=== PATIENT | female | born 1995 | race Caucasian/White ===

== ENCOUNTER 2017-05-04 08:17 | Emergency (ER) | payer BC ==
[2017-05-04] MEDS ORDERED: KETOROLAC 30 MG/ML 1 ML VIAL IVP STA (08:48)
[2017-05-04] MEDS ORDERED: ONDANSETRON 4 MG/2 ML VIAL IVP STA (08:48)
[2017-05-04] MEDS ORDERED: RX INFO: IV CONTRAST WAS GIVEN 1 EACH MISC MISCELLANE PRN (08:48)
[2017-05-04] MEDS ORDERED: SODIUM CHLORIDE 0.9% 1,000 ML IV STA (08:48)
[2017-05-04] MEDS ORDERED: MORPHINE SULFATE 4 MG/ML SYRINGE IVP STA (08:48)
--- NOTE | 2017-05-04 08:52 | ED ---
Abdominal Pain HPI - General Chief Complaint: Abdominal Pain Stated Complaint: Lower back pain Time Seen by Provider: 05/04/17 08:25 Source: patient, RN notes reviewed, old records reviewed Mode of arrival: ambulatory Limitations: no limitations - History of Present Illness Initial Comments: This patient is a 21-year-old female presents emergency Department with a chief complaint of 3 days of lower back pain that is not really transferred to abdomen She reports that it is lower abdominal cramping. She reports she has a history of constipation but has been having normal bowel movements over the past couple of days. Patient reports that she's also didn't diagnose vaguely with PCOS. She states that she is concerned because the pain is now just not just in the back reading towards her abdomen. She reports that she's had normal urination. Denies any fever or chills, nausea or vomiting. - Related Data Home Medications Medication Instructions Recorded Confirmed Clindamycin Topical Soln 1 applic TOPICAL BID 05/04/17 05/04/17 [Cleocin-T Topical Soln] Norethindrone [Daya] 0.35 mg PO DAILY 05/04/17 05/04/17 Previous Rx's Medication Instructions Recorded Ibuprofen [Motrin] 600 mg PO Q8HR PRN #20 tab 05/04/17 Ondansetron [Zofran] 4 mg PO Q8HR PRN #20 tab 05/04/17 traMADol HCl [Ultram] 50 mg PO Q6H PRN #15 tab 05/04/17 Allergies Allergy/AdvReac Type Severity Reaction Status Date / Time No Known Allergies Allergy Verified 05/04/17 08:32 Review of Systems ROS Statement: Those systems with pertinent positive or pertinent negative responses have been documented in the HPI. ROS Other: All systems not noted in ROS Statement are negative. Past Medical History Past Medical History: No Reported History Additional Past Medical History / Comment(s): Hidradenitis suppurativa History of Any Multi-Drug Resistant Organisms: None Reported Past Surgical History: No Surgical Hx Reported Past Psychological History: No Psychological Hx Reported Smoking Status: Never smoker Past Alcohol Use History: None Reported Past Drug Use History: None Reported General Exam - General Exam Comments Initial Comments: This patient is a 21-year-old female. No distress. Limitations: no limitations General appearance: alert, in no apparent distress Head exam: Present: atraumatic, normocephalic, normal inspection Eye exam: Present: normal appearance, PERRL, EOMI. Absent: scleral icterus, conjunctival injection, periorbital swelling ENT exam: Present: normal exam, mucous membranes moist Neck exam: Present: normal inspection. Absent: tenderness, meningismus, lymphadenopathy Respiratory exam: Present: normal lung sounds bilaterally. Absent: respiratory distress, wheezes, rales, rhonchi, stridor Cardiovascular Exam: Present: regular rate, normal rhythm, normal heart sounds. Absent: systolic murmur, diastolic murmur, rubs, gallop, clicks GI/Abdominal exam: Present: soft, tenderness (Bilateral left and right lower quadrant tenderness on exam.), normal bowel sounds. Absent: distended, guarding , rebound, rigid Extremities exam: Present: normal inspection, full ROM, normal capillary refill. Absent: tenderness, pedal edema, joint swelling, calf tenderness Back exam: Present: normal inspection Neurological exam: Present: alert, oriented X3, CN II-XII intact Psychiatric exam: Present: normal affect, normal mood Skin exam: Present: warm, dry, intact, normal color. Absent: rash Course Vital Signs 05/04/17 05/04/17 08:20 11:23 Temperature 98.1 F 97.9 F Pulse Rate 110 H 75 Respiratory 18 16 Rate Blood Pressure 142/80 111/59 O2 Sat by Pulse 99 97 Oximetry Medical Decision Making - Medical Decision Making This patient is a 21-year-old female presents emergency Department with a chief complaint of 3 days of lower back pain that is not really transferred to abdomen yesterday and mainly in LLQ. She reports that it is lower abdominal cramping. Patient lab work was reviewed and normal. Patient continued to state in severe pain, CT abdomen and pelvis completed showing follicular changes in ovary. Discussed with normal labs, left ovarian cyst is cause of patient pain. Discussed appropriate follow up with OB and PCP. Return parameters discussed. - Lab Data Result diagrams: 05/04/17 09:10 05/04/17 09:10 Lab Results 05/04/17 05/04/17 05/04/17 Range/Units 09:10 09:10 09:30 WBC 10.7 H (3.8-10.6) k/uL RBC 4.91 (3.80-5.40) m/uL Hgb 13.9 (11.4-16.0) gm/dL Hct 40.1 (34.0-46.0) % MCV 81.7 (80.0-100.0) fL MCH 28.4 (25.0-35.0) pg MCHC 34.7 (31.0-37.0) g/dL RDW 12.3 (11.5-15.5) % Plt Count 281 (150-450) k/uL Neutrophils % 67 % Lymphocytes % 25 % Monocytes % 5 % Eosinophils % 2 % Basophils % 0 % Neutrophils # 7.1 (1.3-7.7) k/uL Lymphocytes # 2.6 (1.0-4.8) k/uL Monocytes # 0.5 (0-1.0) k/uL Eosinophils # 0.2 (0-0.7) k/uL Basophils # 0.0 (0-0.2) k/uL Sodium 140 (137-145) mmol/L Potassium 3.3 L (3.5-5.1) mmol/L Chloride 97 L (98-107) mmol/L Carbon Dioxide 30 (22-30) mmol/L Anion Gap 13 mmol/L BUN 13 (7-17) mg/dL Creatinine 0.71 (0.52-1.04) mg/dL Est GFR (MDRD) Af Amer >60 (>60 ml/min/1.73 sqM) Est GFR (MDRD) Non-Af >60 (>60 ml/min/1.73 sqM) Glucose 86 (74-99) mg/dL Calcium 9.4 (8.4-10.2) mg/dL Total Bilirubin 0.3 (0.2-1.3) mg/dL AST 27 (14-36) U/L ALT 34 (9-52) U/L Alkaline Phosphatase 134 H (38-126) U/L Total Protein 7.6 (6.3-8.2) g/dL Albumin 4.1 (3.5-5.0) g/dL Amylase 49 (30-110) U/L Lipase 115 (23-300) U/L Urine Color Light Yellow Urine Appearance Clear (Clear) Urine pH 6.0 (5.0-8.0) Ur Specific Edison 1.007 (1.001-1.035) Urine Protein Negative (Negative) Urine Glucose (UA) Negative (Negative) Urine Ketones Negative (Negative) Urine Blood Negative (Negative) Urine Nitrite Negative (Negative) Urine Bilirubin Negative (Negative) Urine Urobilinogen <2.0 (<2.0) mg/dL Ur Leukocyte Esterase Negative (Negative) - Radiology Data Radiology results: report reviewed Hepatomegaly noted, correlate for possible causes including fatty infiltration and hepatitis. Few borderline size mesenteric lymph nodes measuring 7 mm's likely reactive or postinflammatory. Follicular change in the ovaries and 3.1 dominant follicle or functional cyst on the left. KUB shows a couple small air-fluid levels in the left mid abdomen could reflect regional enteritis or ileus. No evidence of small bowel obstruction or free intraperitoneal air. Disposition Clinical Impression: Hepatomegaly, Ovarian cyst Disposition: HOME SELF-CARE Condition: Good Instructions: Ovarian Cyst (ED) Additional Instructions: Patient advised to take the medication as prescribed. Follow-up with primary care provider. Return to the emergency department if any alarming signs or symptoms occur. Prescriptions: Ibuprofen [Motrin] 600 mg PO Q8HR PRN #20 tab PRN Reason: Pain Ondansetron [Zofran] 4 mg PO Q8HR PRN #20 tab PRN Reason: Nausea traMADol HCl [Ultram] 50 mg PO Q6H PRN #15 tab PRN Reason: Pain Referrals: Cesario Gooden DO [Primary Care Provider] - 1-2 days David Dubose MD [STAFF PHYSICIAN] - 1-2 days Time of Disposition: 11:09
[2017-05-04 09:27] LABS: Basophils % (A) 0 %; Eosinophils # (A) 0.2 k/uL (0-0.7); Eosinophils % (A) 2 %; HCT 40.1 % (34.0-46.0); HGB 13.9 gm/dL (11.4-16.0); Lymphocytes # (A) 2.6 k/uL (1.0-4.8); Lymphocytes % (A) 25 %; MCH 28.4 pg (25.0-35.0); MCHC 34.7 g/dL (31.0-37.0); MCV 81.7 fL (80.0-100.0); Mean Platelet Volume 6.3; Monocytes # (A) 0.5 k/uL (0-1.0); Monocytes % (A) 5 %; Neutrophils # (A) 7.1 k/uL (1.3-7.7); Neutrophils % (A) 67 %; Platelet Count 281 k/uL (150-450); RBC 4.91 m/uL (3.80-5.40); RDW 12.3 % (11.5-15.5); WBC 10.7 k/uL (3.8-10.6)
[2017-05-04 09:40] LABS: ALT 34 U/L (9-52); AST 27 U/L (14-36); Albumin 4.1 g/dL (3.5-5.0); Alkaline Phosphatase 134 U/L (38-126); Amylase 49 U/L (30-110); Anion Gap 13 mmol/L; Blood Urea Nitrogen 13 mg/dL (7-17); Calcium 9.4 mg/dL (8.4-10.2); Carbon Dioxide 30 mmol/L (22-30); Chloride 97 mmol/L (98-107); Glucose 86 mg/dL (74-99); Lipase 115 U/L (23-300); Potassium 3.3 mmol/L (3.5-5.1); Sodium 140 mmol/L (137-145); Total Bilirubin 0.3 mg/dL (0.2-1.3); Total Protein 7.6 g/dL (6.3-8.2)
--- NOTE | 2017-05-04 09:49 | XR ---
EXAMINATION TYPE: XR KUB DATE OF EXAM: 05/04/2017 CLINICAL DATA: 21-year-old female low back pain and abdominal cramping, PHH COMPARISON: None FINDINGS: Lung bases are clear. No evidence for free intraperitoneal air. A couple small bowel air-fluid levels in the left mid abdomen. No dilated small bowel loops or differ ential air-fluid levels. Mild stool burden. No suspicious calcifications seen. IMPRESSION: 1. A couple small air-fluid levels in the left mid abdomen could reflect a regional enteritis or ileu s. 2.No evidence of bowel obstruction or free intraperitoneal air.
[2017-05-04 10:21] LABS: Appearance,Urine Clear (Clear); Bilirubin,Urine Negative (Negative); Blood,Urine Negative (Negative); Color,Urine Light Yellow; Glucose,Urine (UA) Negative (Negative); Ketones,Urine Negative (Negative); Leukocyte Esterase,Urine Negative (Negative); Nitrite,Urine Negative (Negative); Protein,Urine Negative (Negative); Specific Gravity,Urine 1.007 (1.001-1.035); Urobilinogen,Urine <2.0 mg/dL (<2.0)
--- NOTE | 2017-05-04 10:23 | CT ---
EXAMINATION TYPE: CT abdomen pelvis w con DATE OF EXAM: 05/04/2017 COMPARISON: NONE HISTORY: 21-year-old female Lower back pain TECHNIQUE: Contiguous axial scanning of the abdomen and pelvis following administration of 100 ml Omn ipaque 300 IV contrast. Delayed images through the kidneys and coronal/sagittal reconstructions perf ormed. CT DLP: 1898 mGycm Automated exposure control for dose reduction was used. FINDINGS: Heart is normal size without pericardial effusion. Lung bases clear without pleural effusion. Liver enlarged measuring 20.0 cm craniocaudal. Portal venous system is patent. No biliary ductal dila tation. Gallbladder, adrenal glands, spleen, and pancreas appear within normal limits. No dilated small bowel, free fluid, or free air. A few scattered small mesenteric lymph nodes measuring up to 7 mm which is borderline to mildly enlar ged. Normal appendix. Moderate stool in the cecum. Bladder partially distended. Uterus and ovaries are visualized. Follicular change in both ovaries wit h a 3.1 cm dominant follicle or functional cyst of the left ovary. No abnormal fluid collection in th e pelvis or pelvic lymphadenopathy. Bones: No osseous destructive process. IMPRESSION: 1. HEPATOMEGALY (20.0 CM). CORRELATE FOR POSSIBLE CAUSES INCLUDING FATTY INFILTRATION AND HEPATITIS. 2. A FEW BORDERLINE SIZED MESENTERIC LYMPH NODES MEASURING UP TO 7 MM LIKELY REACTIVE/POST INFLAMMATO RY. 3. FOLLICULAR CHANGE IN THE OVARIES WITH A 3.1 CM DOMINANT FOLLICLE OR FUNCTIONAL CYST ON THE LEFT.
[2017-05-04 11:26] VITALS: BP 111/59; PULSE 75; RESP 16; TEMP 97.9
== END 2017-05-04 11:25 | disposition home or self-care (01) ==
LOC: EC 08:17
DX: N83.202 Unspecified ovarian cyst, left side (principal); R16.0 Hepatomegaly, not elsewhere classified; Z79.3 Long term (current) use of hormonal contraceptives
CPT/HCPCS: 99285; 96374; 96375 ×2; 36415; 80053; 82150; 83690; 85025; 81003; 87086; 74018; 74177; J2270; J2405; J1885; Q9967

== ENCOUNTER → 2019-01-31 | Outpatient (CLI) | payer BC ==
--- NOTE | 2019-01-31 08:51 | US ---
EXAMINATION TYPE: US abdomen comp/pelvis limited DATE OF EXAM: 01/31/2019 COMPARISON: NONE CLINICAL HISTORY: R11.2 Nausea with Vomiting. Nausea and vomiting x 3 weeks. EXAM MEASUREMENTS: Liver Length: 18.2 cm Gallbladder Wall: .2 cm CBD: .4 cm Spleen: 11.3 cm Right Kidney: 9.4 x 4.0 x 4.0 cm Left Kidney: 10.7 x 4.9 x 3.8 cm Pancreas: Obscured by bowel gas Liver: Hepatomegaly. There is increased echogenicity of the hepatic parenchyma with diminished visua lization of the portal triads most commonly relating to hepatic steatosis and limiting evaluation for underlying hepatic masses. Gallbladder: No stones seen CBD: wnl Spleen: wnl Right Kidney: wnl Left Kidney: wnl Upper IVC: wnl Abd Aorta: wnl Bladder: wnl Bilateral Jets Seen Yes IMPRESSION: 1. Sonographic findings most commonly related to hepatic steatosis. Correlate with liver function tisha ts. 2. No sonographic evidence of cholelithiasis nor acute cholecystitis.
== END | disposition home or self-care (01) ==
LOC: RADUSWWP 07:40
PROVIDERS: ATTEND Family Medicine
DX: R11.2 Nausea with vomiting, unspecified (principal)
CPT/HCPCS: 76700; 76857

== ENCOUNTER 2021-01-14 09:03 | Outpatient (CLI) | payer BC ==
[2021-01-14 10:56] VITALS: BP 130/77; PULSE 92; RESP 16; TEMP 96.9
--- NOTE | 2021-01-15 10:53 | P.MSEPDOC ---
Presenting Problems - Arrival Data Date of Arrival on Unit: 01/14/21 Time of Arrival on Unit: 09:03 Mode of Transport: Ambulatory - Complaint OB-Reason for Admission/Chief Complaint: Possible Onset of Labor Comment: cramping and pressure since 2100 last night Medical History - Information : 1 Para: 0 Term: 0 : 0 Abortions: Spontaneous or Elective: 0 Number of Living Children: 0 - Gestational Age Gestational Age by ISABELL (wks/days): 34 Weeks and 5 Days Review of Systems - Review of Systems Constitutional: No problems Breast: No problems ENT: No problems Cardiovascular: No problems Respiratory: No problems Gastrointestinal: No problems Genitourinary: No problems Musculoskeletal: No problems Neurological: No problems Skin: No problems Vital Signs - Temperature Temperature: 96.9 F Temperature Source: Temporal Artery Scan - Pulse Right Brachial Pulse Rate: 92 Pulse Assessment Method: Automatic Cuff - Respirations Respiratory Rate: 16 Oxygen Delivery Method: Room Air O2 Sat by Pulse Oximetry: 99 - Blood Pressure Right Arm Sitting Blood Pressure: 130/77 Blood Pressure Mean: 94 Blood Pressure Source: Automatic Cuff Medical Screen Scoring - Cervical Exam Dilation (cm): 0 Effacement (%): 0 Station: -2 Membranes: Intact - Uterine Contractions Frequency From (mins): 2 Frequency To (mins): 7 Duration From (seconds): 40 Duration To (seconds): 80 Intensity: Moderate - Assessment - Baby A Baseline FHR: 115 Heart Rate - NICHD Category: Category I (Normal) NST: Reactive Physician Notification - Physician Notified Physician Notified Date: 01/14/21 Physician Notified Time: 10:32 Physician: Geneva Ryan Order Received: Yes (d/c with instruction) - Notification Comment Comment: Pt instructed to call her OB for follow up instructions Maternal Triage Index - Maternal Triage Index Presenting for scheduled procedure w/no complaint: No - Stat/Priority 1 Stat Priority 1: No - Urgent/Priority 2 Urgent Priority 2: No - Prompt/Priority 3 Prompt Priority 3: Yes Criteria Met for Priority 3: 34 5/7 vivek, no cervical change Disposition - Disposition OB Disposition: Triage, Discharge to home, Written follow up instructions reviewed Discharge Date: 01/14/21 Discharge Time: 10:38 I agree with the RN Medical Screening Exam: Yes Case reviewed; plan agreed upon as documented in EMR&OBIX.: Yes Diagnosis: FALSE LABOR BEFORE 37 COMPLETED WEEKS OF GEST, THIRD TRI
== END 2021-01-14 10:40 ==
LOC: FBPOP 09:03
PROVIDERS: ATTEND Obstetrics & Gynecology
DX: O47.03 False labor before 37 completed weeks of gestation, third trimester (principal); Z3A.34 34 weeks gestation of pregnancy
CPT/HCPCS: 59025; 99213

== ENCOUNTER 2021-02-16 05:00 | Outpatient (CLI) | payer BC ==
[2021-02-16 06:01] VITALS: BP 122/66; PULSE 105; RESP 16; TEMP 97.7
--- NOTE | 2021-03-22 08:58 | P.MSEPDOC ---
Presenting Problems - Arrival Data Date of Arrival on Unit: 02/16/21 Time of Arrival on Unit: 05:00 Mode of Transport: Ambulatory - Complaint OB-Reason for Admission/Chief Complaint: Rule Out SROM Medical History - Information : 1 Para: 0 Term: 0 : 0 Abortions: Spontaneous or Elective: 0 Number of Living Children: 0 - Gestational Age Gestational Age by ISABELL (wks/days): 39 Weeks and 3 Days Review of Systems - Review of Systems Constitutional: No problems Breast: No problems ENT: No problems Cardiovascular: No problems Respiratory: No problems Gastrointestinal: No problems Genitourinary: No problems Musculoskeletal: No problems Neurological: No problems Skin: No problems Vital Signs - Temperature Temperature: 97.7 F Temperature Source: Oral - Pulse Right Sitting Pulse Rate: 105 Pulse Assessment Method: Automatic Cuff - Respirations Respiratory Rate: 16 Oxygen Delivery Method: Room Air O2 Sat by Pulse Oximetry: 98 - Blood Pressure Right Arm Blood Pressure: 122/66 Blood Pressure Mean: 84 Blood Pressure Source: Automatic Cuff Medical Screen Scoring - Cervical Exam Dilation (cm): 0 Membranes: Intact - Assessment - Baby A Baseline FHR: 140 Heart Rate - NICHD Category: Category I (Normal) NST: Reactive Physician Notification - Physician Notified Physician Notified Date: 02/16/21 Physician Notified Time: 05:40 Physician: Madison Casanova Order Received: Yes (discharge home) Maternal Triage Index - Maternal Triage Index Presenting for scheduled procedure w/no complaint: No - Stat/Priority 1 Stat Priority 1: No - Urgent/Priority 2 Urgent Priority 2: No - Prompt/Priority 3 Prompt Priority 3: No - Non-Urgent/Priority 4 Non-Urgent Priority 4: Yes Criteria Met for Priority 4: pt had a gush of clear fluid while on the toilet at 0400 Disposition - Disposition OB Disposition: Physician follow up in office, Discharge to home, Written follow up instructions reviewed Discharge Date: 02/16/21 Discharge Time: 05:50 I agree with the RN Medical Screening Exam: Yes Case reviewed; plan agreed upon as documented in EMR&OBIX.: Yes Diagnosis: FALSE LABOR AT OR AFTER 37 COMPLETED WEEKS OF GESTATION
== END 2021-02-16 05:50 | disposition home or self-care (01) ==
LOC: FBPOP 05:00
PROVIDERS: ATTEND Obstetrics & Gynecology
DX: O47.1 False labor at or after 37 completed weeks of gestation (principal); Z3A.39 39 weeks gestation of pregnancy
CPT/HCPCS: 59025; 84112; 99213

== ENCOUNTER 2021-02-21 17:14 | Inpatient (IN) | payer BC ==
[~2021-02-21 17:14] MED LIST: KETOROLAC 15 MG/ML 1 ML VIAL ONE; MORPHINE SULFATE (PF) 0.3 MG/0.3 ML SYR ONE; ONDANSETRON 4 MG/2 ML VIAL ONE; ROPIVACAINE 5MG/ML 20ML VIAL ONE; SODIUM CHLORIDE 0.9% 100 ML BAG ONE; fentaNYL (PF) 50 MCG/ML 5 ML AMP ONE
--- NOTE | 2021-02-21 18:18 | P.HPOB ---
History of Present Illness H&P Date: 02/21/21 Chief Complaint: 40 and one sevenths weeks, spontaneous rupture, no local pr enatal care The patient is a 25-year-old 1 para 0 who presents to triage with no local care though she has had complete care through clinic in the [place] area. She lives here and was concern for possible spontaneous rupture of membranes this afternoon. She presented to our triage unit where the diagnosis of spontaneous rupture of membranes has been confirmed. Her has been uncomplicated. She presents with a complete record including labs. On labor and delivery, heart rate tracing is category 1. Amniotic fluid appears to be clear. Group B strep status is negative. Contractions at this time are somewhat irregular. Obstetrical history: 1 para 0 current statistics listed in history present illness. EDC of 02/20/2021 was established by early ultrasound. Laboratory workup demonstrates a blood type of A+ with a negative antibody screen. Rubella status is not reported in the record and will be drawn. The remainder of the laboratory workup was within normal limits and group B strep status is negative. One hour Glucola was normal. Gynecologic history: Unremarkable with no history of any infections to include STDs. Review of Systems Review of systems is confined to history of present illness. Past Medical History Past Medical History: No Reported History Additional Past Medical History / Comment(s): Hidradenitis suppurativa History of Any Multi-Drug Resistant Organisms: None Reported Past Surgical History: No Surgical Hx Reported Smoking Status: Never smoker Medications and Allergies Home Medications Medication Instructions Recorded Confirmed Type Loratadine [Claritin] 10 mg PO DAILY 01/14/21 02/21/21 History Cholecalciferol [Vitamin D3 (25 2 tab PO DAILY 02/16/21 02/21/21 History Mcg = 1000 Iu)] Pnv No.95/Ferrous Fum/Folic AC 1 tab PO DAILY 02/16/21 02/21/21 History [ Multivitamin Tablet] Pyridoxine [Vitamin B-6] 1 tab PO DAILY 02/16/21 02/21/21 History Allergies Allergy/AdvReac Type Severity Reaction Status Date / Time No Known Allergies Allergy Verified 01/14/21 09:13 Exam Intake and Output 02/21/21 02/21/21 02/21/21 06:59 14:59 22:59 Other: Weight 102.965 kg In general, this is a well-developed, mild to moderately obese white female in no acute distress though she does occasionally show discomfort secondary to contractions. Her heart has a regular rhythm and rate without murmur. Her lungs are clear to auscultation bilaterally in all navarro. Her abdomen is mildly obese, nondistended, has normal active bowel sounds, soft, nontender, and without any palpable masses aside from uterine fundus. Her extremities are without any cyanosis, clubbing, or significant edema and are nontender to palpation bilaterally. Digital cervical examination performed by the nursing staff demonstrates her cervix to be fingertip dilated, 50% effaced, with the vertex in presentation at -3 station. Presentation is confirmed by bedside hand-held ultrasound for by myself. Spontaneous rupture of membranes is documented and appears to be clear fluid. Assessment and Plan (1) Spontaneous rupture of membranes Current Visit: Yes Status: Acute Code(s): DJJ6999 - SNOMED Code(s): 709262597 (2) Post-dates Current Visit: Yes Status: Acute Code(s): O48.0 - POST-TERM SNOMED Code(s): 51309609 Plan: The patient is admitted for active management of labor. She was given the option of proceeding to intended site of delivery which she declined. Given that the exact timing of rupture of membranes is not clear this afternoon, she will likely have Pitocin augmentation started in the next hour or 2. She will have close maternal and surveillance and expectant management will be practiced. She is a good candidate for either IV or epidural analgesia, whichever she may choose. Are presumed time of rupture will be taken as approximately 1700 hrs. Should she remain remote from delivery later tonight, antibiotic prophylaxis will likely be started prophylactically.
[2021-02-21] MEDS ORDERED: METHYLERGONOVINE 0.2 MG/ML 1 ML AMP IM PRN (18:56)
[2021-02-21] MEDS ORDERED: OXYTOCIN 10 UNIT/ML 1 ML VIAL IM PRN (18:56)
[2021-02-21] MEDS ORDERED: CARBOPROST TROMETHAMINE 250 MCG/ML 1 ML AMP IM PRN (18:56)
[2021-02-21] MEDS ORDERED: LIDOCAINE 0.5% (PF) 5 MG/ML (50 ML SDV) SQ PRN (18:56)
[2021-02-21] MEDS ORDERED: TERBUTALINE 1 MG/ML VIAL SQ PRN (18:56)
[2021-02-21] MEDS ORDERED: OXYTOCIN 30 UNITS/500 ML NS 30 UNIT in SALINE 1 500ML.BAG IV SCH (19:00)
[2021-02-21] MEDS: LACTATED RINGERS 1,000 ML IV SCH ×2 (19:12→23:43)
[2021-02-21 19:15] LABS: Basophils % (A) 0 %; Eosinophils # (A) 0.1 k/uL (0-0.7); Eosinophils % (A) 1 %; HCT 35.1 % (34.0-46.0); HGB 12.2 gm/dL (11.4-16.0); Lymphocytes # (A) 1.6 k/uL (1.0-4.8); Lymphocytes % (A) 16 %; MCH 31.9 pg (25.0-35.0); MCHC 34.7 g/dL (31.0-37.0); MCV 92.1 fL (80.0-100.0); Mean Platelet Volume 7.7; Monocytes # (A) 0.4 k/uL (0-1.0); Monocytes % (A) 4 %; Neutrophils # (A) 7.6 k/uL (1.3-7.7); Neutrophils % (A) 77 %; Platelet Count 187 k/uL (150-450); RBC 3.81 m/uL (3.80-5.40); WBC 9.8 k/uL (3.8-10.6)
[2021-02-21] MEDS: BUTORPHANOL 1 MG/ML 1 ML VIAL IV PRN ×2 (21:39→23:42)
[2021-02-22] MEDS: LACTATED RINGERS 1,000 ML IV SCH ×2 (03:00→06:02)
[2021-02-22] MEDS ORDERED: PENICILLIN G POTASSIUM 5,000,000 UNIT in DEXTROSE 5% IN WATER 100 ML IVPB STA ×2 (05:30)
[2021-02-22] MEDS: BUTORPHANOL 1 MG/ML 1 ML VIAL IV PRN ×3 (09:17→13:26)
[2021-02-22] MEDS: PENICILLIN G POTASSIUM 2,500,000 UNIT in DEXTROSE 5% IN WATER 100 ML IVPB SCH ×4 (11:00→15:00)
[2021-02-22] MEDS ORDERED: CITRIC ACID-SODIUM CITRATE 15 ML CUP PO ONE (15:14)
[2021-02-22] MEDS ORDERED: LACTATED RINGERS 1,000 ML IV ONE (15:14)
[2021-02-22] MEDS ORDERED: HYDROmorphone 2 MG TAB PO PRN ×2 (18:17)
[2021-02-22] MEDS ORDERED: KETOROLAC 30 MG/ML 1 ML VIAL IVP PRN (18:17)
[2021-02-22] MEDS ORDERED: LANOLIN CREAM 5 GM TUBE TOPICAL PRN (18:17)
[2021-02-22] MEDS ORDERED: diphenhydrAMINE 25 MG CAP PO PRN (18:17)
[2021-02-22] MEDS ORDERED: ZOLPIDEM 5 MG TAB PO PRN (18:17)
[2021-02-22] MEDS ORDERED: METOCLOPRAMIDE 5 MG/ML 2 ML VIAL IVP PRN (18:17)
[2021-02-22] MEDS ORDERED: NALOXONE 0.4 MG/ML 1 ML VIAL IV PRN (18:17)
[2021-02-22] MEDS ORDERED: ONDANSETRON 4 MG/2 ML VIAL IVP PRN (18:17)
[2021-02-22] MEDS ORDERED: SIMETHICONE 80 MG CHEWABLE PO PRN (18:17)
[2021-02-22] MEDS ORDERED: diphenhydrAMINE 50 MG CAP PO PRN (18:17)
[2021-02-22] MEDS ORDERED: diphenhydrAMINE 50 MG/ML 1 ML VIAL IVP PRN ×2 (18:17)
--- NOTE | 2021-02-22 18:26 | P.OP ---
Date of Procedure: 02/22/21 Preoperative Diagnosis: #1. 40-2/7 weeks, spontaneous rupture of membranes, labor #2. No local care #3. Arrest of dilation and descent Postoperative Diagnosis: Same plus #4. occiput posterior Procedure(s) Performed: #1. Primary low-transverse section Anesthesia: spinal Surgeon: David Dubose Deck Engineer #1: Wilton Hairston Estimated Blood Loss (ml): 810 IV fluids (ml): 800 Urine output (ml): 400 Pathology: none sent Condition: stable Disposition: floor Operative Findings: Preoperative week, the patient had been in labor since last evening when she presented with spontaneous rupture of membranes for clear fluid. She had Pitocin augmentation started shortly after admission and an epidural catheter placed twice overnight with some resolution of pain but, incomplete. She had antibiotic prophylaxis started at approximately 14 hours post suspected time of rupture. She did make progress into the active phase of labor but remained at approximately 5 cm of dilation for approximately 5-1/2 hours. Given the option of continuing versus section, the patient requested to proceed with section. She was taken to the operating room where she was delivered of a viable 9 lbs. 3 oz. baby girl with Apgars of 9 at 1 minute and 9 at 5 minutes delivered in the left occiput posterior position. The placenta was delivered manually, intact, and grossly normal with a grossly normal three- vessel cord. The uterus, tubes, and ovaries were entirely normal to inspection. Description of Procedure: the patient was prepped and draped in usual fashion after spinal anesthesia was a denser by the anesthesiologist. A Pfannenstiel incision was made and extended into the abdominal cavity without difficulty. The bladder peritoneum was felt to be significantly distal to the intended site of incision and was left intact. A 2 cm incision was made in the transverse plane of the lower uterine segment to enter the uterus at which time a copious amount of clear fluid was evacuated through the small opening. The incision was extended in both directions bluntly. The head was encountered deep within the pelvis in the occiput posterior position and was delivered up and through the incision where the nose and mouth were thoroughly suctioned. The infant was then delivered onto the field where the cord was doubly clamped, cut, and the infant passed resuscitative measures with weight and Apgars as noted above. A segment of cord was doubly clamped, cut, and set aside should cord gases become necessary. The placenta was delivered manually and intact as noted above. The uterus was exteriorized and the interior cavity of the uterus swept of any remaining clot, fluid, or membranous fragments. The margins of the uterine incision were grasped with Barrett clamps and the uterus closed in 2 layers. The first layer was a running locking stitch of 0 chromic catgut followed by a running imbricating layer of 0 chromic catgut. Examination the incision demonstrated adequate hemostasis. The posterior cul-de-sac was suctioned with a guard and the uterine and ovarian findings were normal as noted above. The uterus was replaced within the abdominal cavity and the gutters swept of any remaining blood, fluid, or clot. The incision was reexamined and found to be hemostatic. The parietal peritoneum was loosely reapproximated in the layer of muscles examined and found to be hemostatic. The fascia was closed in a single running stitch of 0 Vicryl from margin to margin. The subcutaneous tissues were irrigated, made hemostatic with the Bovie, and reapproximated with a running stitch of 30 plain catgut. The skin was reapproximated with a running subcuticular stitch of 4-0 Vicryl followed by half-inch Steri-Strips placed with Mastisol. The quantitative blood loss for the case was 810 ML. All sponge, instrument, needle counts were correct. There were no complications. The patient tolerated the procedure well and proceeded to the recovery room in stable condition. Both mother and infant are resting comfortably in recovery.
[2021-02-22] MEDS ORDERED: LACTATED RINGERS 1,000 ML IV SCH (18:30)
[2021-02-22] MEDS ORDERED: OXYTOCIN 30 UNITS/500 ML NS 30 UNIT in SALINE 1 500ML.BAG IV SCH (18:30)
[2021-02-23] MEDS: ACETAMINOPHEN TAB 500 MG TAB PO SCH ×5 (03:31→20:39)
[2021-02-23] MEDS: IBUPROFEN 600 MG TAB PO SCH ×5 (03:33→17:03)
[2021-02-23] MEDS: SENNOSIDES-DOCUSATE SODIUM 1 EACH TAB PO SCH ×3 (03:34→20:39)
[2021-02-23 05:14] LABS: Basophils % (A) 0 %; Eosinophils % (A) 0 %; HCT 24.7 % (34.0-46.0); Lymphocytes # (A) 2.2 k/uL (1.0-4.8); Lymphocytes % (A) 15 %; MCH 31.9 pg (25.0-35.0); MCHC 34.7 g/dL (31.0-37.0); MCV 91.8 fL (80.0-100.0); Monocytes # (A) 0.7 k/uL (0-1.0); Monocytes % (A) 5 %; Neutrophils # (A) 11.4 k/uL (1.3-7.7); Neutrophils % (A) 79 %; Platelet Count 176 k/uL (150-450); RBC 2.69 m/uL (3.80-5.40); RDW 14.7 % (11.5-15.5); WBC 14.5 k/uL (3.8-10.6)
[2021-02-23 05:22] LABS: HGB 8.6 gm/dL (11.4-16.0)
--- NOTE | 2021-02-23 08:54 | P.PN ---
Progress Note - Text Progress Note Date: 02/23/21 (180) Anesthesia Postop day 1 Subjective: Status Post section with Duramorph. Patient seen and examined. Doing well without complaint. VAS 1 out of 10. No nausea or vomiting, mild pruritustolerable. Afebrile. Gross lower extremity strength intact. . Without apparent anesthetic complications. Objective: Vital signs reviewed Heart: Regular Rate Lungs: Good chest excursion Abdomen: Appears nondistended Assessment: Status post with Duramorph postop day 1 Plan: Continue current care with your medical management.
--- NOTE | 2021-02-23 12:49 | P.PNOBGPC ---
Subjective - Subjective Patient reports: Reports appetite normal, Reports voiding normally, Reports pain well controlled, Reports ambulating normally [facility]: doing well Objective - Vital Signs Latest vital signs: Vital Signs Temp Pulse Resp BP Pulse Ox 02/23/21 11:58 97.9 F 91 16 99/62 98 02/23/21 08:00 98.2 F 86 16 106/67 96 02/23/21 04:00 98.7 F 79 17 94/60 97 02/23/21 00:00 80 16 134/70 98 02/22/21 20:35 78 16 124/59 99 02/22/21 20:05 79 16 119/57 99 02/22/21 19:35 71 16 114/59 02/22/21 19:03 85 17 104/55 99 02/22/21 18:47 76 17 101/57 97 02/22/21 18:33 95 16 115/55 99 02/22/21 18:18 98.7 F 90 16 123/60 97 Intake and Output 02/22/21 02/23/21 02/23/21 22:59 06:59 14:59 Intake Total 200 200 400 Output Total 1710 1999 275 Balance -1510 -1800 125 Intake: IV 200 200 Oral 400 Output: Urine 900 1999 275 Uretheral (Bob) 1600 Estimated Blood Loss 810 Other: # Voids 1 - Exam Extremities: Present: normal Abdomen: Present: normal appearance, soft. Absent: distention, tenderness Incision: Present: normal, dry, intact Uterus: Present: normal, firm (The uterine fundus is tonic and appropriately tender just below the umbilicus.) - Labs Labs: Abnormal Lab Results - Last 24 Hours (Table) 02/23/21 Range/Units 05:00 WBC 14.5 H (3.8-10.6) k/uL RBC 2.69 L (3.80-5.40) m/uL Hgb 8.6 L D (11.4-16.0) gm/dL Hct 24.7 L (34.0-46.0) % Neutrophils # 11.4 H (1.3-7.7) k/uL Assessment and Plan (1) Spontaneous rupture of membranes Current Visit: Yes Status: Acute Code(s): BGB6198 - SNOMED Code(s): 530414190 (2) Post-dates Current Visit: Yes Status: Acute Code(s): O48.0 - POST-TERM SNOM ED Code(s): 70648092 (3) S/P section Current Visit: Yes Status: Acute Code(s): Z98.891 - HISTORY OF UTERINE SCAR FROM PREVIOUS SURGERY SNOMED Code(s): 256667389 Plan: Continue routine postoperative and care. I have encouraged patient to ambulate in the hallways routinely. I would anticipate possible discharge home tomorrow pending complications.
[2021-02-24] MEDS: IBUPROFEN 600 MG TAB PO SCH ×2 (00:29→07:54)
[2021-02-24] MEDS: ACETAMINOPHEN TAB 500 MG TAB PO SCH (04:41)
[2021-02-24 08:40] VITALS: BP 109/70; PULSE 101; RESP 18; TEMP 97.9
--- NOTE | 2021-02-24 09:33 | P.DS ---
Providers Date of admission: 02/21/21 17:57 Expected date of discharge: 02/24/21 Attending physician: David Dubose Primary care physician: David Dubose - Discharge Diagnosis(es) (1) Spontaneous rupture of membranes Current Visit: Yes Status: Acute (2) Post-dates Current Visit: Yes Status: Acute (3) S/P section Current Visit: Yes Status: Acute Hospital Course: The patient is a 25-year-old 1 para 0 who presents to triage with no care locally though she has had complete care through a nurse midwifery clinic in the [facility]. She presents here because this is whe re she lives and is at 40 and one sevenths weeks at presentation with documented spontaneous rupture of membranes. Her was otherwise uncomplicated and group B strep status is negative. Time of rupture is a little unclear. As a result, she had Pitocin augmentation started shortly after presentation as her cervix was otherwise completely unfavorable. She made very slow progress through the latent phase of labor and had antibiotic prophylaxis started at approximately 12-14 hours post rupture. She ultimately progressed to approximate 5 cm at which time she remained without casino change attendant the next 4-6 hours. She was counseled and agreed to undergo primary low-transverse section. She was taken the operating room where she was delivered of a viable 9 lbs. 3 oz. baby girl with Apgars of 9 at 1 minute and 9 at 5 minutes. Her and postoperative courses were entirely unremarkable vital signs being stable and her temperature was afebrile throughout. She was deemed stable for discharge on and postoperative day #2 was discharged home to follow-up in the office in 2 weeks for an incision check and 6 weeks routinely. Discharge instructions included calling for any significantly increased bleeding or foul-smelling lochia, significantly increased fever abdominal pain, perineal complaints, breast complaints, incisional complaints, or any also concerned her. She was additionally instructed to have nothing in the vagina for at least 6 weeks time to include intercourse. She was also instructed to do no heavy lifting over the next 6 weeks and [address] until off of all pain medications or 2 weeks' time, whichever came first. She understood her instructions and agrees to follow up as noted above. Discharge medications included continued vitamins as well as [id number] analgesic pain medications. She was provided with prescription for, #3, 1-2 by mouth every 6 hours when necessary pain, #20 dispensed with no refills. Maternal blood type is A+ and rubella status was drawn at admission and is not reported in the chart at this time. Discharge hemoglobin and hematocrit were 8.6 and 24.7 respectively with no signs or symptoms of orthostasis. She was instructed to take iron sulfate daily for at least 1 month to help to rebuild her hemoglobin. Procedures: #1. Pitocin augmentation #2. Antibiotic prophylaxis #3. Epidural analgesia #4. Primary low-transverse section Patient Condition at Discharge: Stable Plan - Discharge Summary Discharge Rx Participant: No New Discharge Prescriptions: No Action Pyridoxine [Vitamin B-6] 1 tab PO DAILY Cholecalciferol [Vitamin D3 (25 Mcg = 1000 Iu)] 2 tab PO DAILY Loratadine [Claritin] 10 mg PO DAILY Pnv No.95/Ferrous Fum/Folic AC [ Multivitamin Tablet] 1 tab PO DAILY Discharge Medication List Loratadine [Claritin] 10 mg PO DAILY 01/14/21 [History] Cholecalciferol [Vitamin D3 (25 Mcg = 1000 Iu)] 2 tab PO DAILY 02/16/21 [History] Pnv No.95/Ferrous Fum/Folic AC [ Multivitamin Tablet] 1 tab PO DAILY 02/16/21 [History] Pyridoxine [Vitamin B-6] 1 tab PO DAILY 02/16/21 [History] Follow up Appointment(s)/Referral(s): David Dubose MD [Primary Care Provider] - 2 Weeks Discharge Disposition: HOME SELF-CARE
== END 2021-02-24 10:40 | disposition home or self-care (01) | DRG 788 ==
LOC: FBPOP 17:14 → 4FBP 17:57
PROVIDERS: ADMIT Obstetrics & Gynecology; ATTEND Obstetrics & Gynecology
PROC: 3E033VJ Introduction of Other Hormone into Peripheral Vein, Percutaneous Approach (ICD-10-PCS; 2021-02-22)
PROC: 10D00Z1 Extraction of Products of Conception, Low, Open Approach (ICD-10-PCS; principal; 2021-02-22 19:00)
DX: O62.0 Primary inadequate contractions (principal); O48.0 Post-term pregnancy; O99.892 Other specified diseases and conditions complicating childbirth; Z37.0 Single live birth; L73.2 Hidradenitis suppurativa; Z3A.40 40 weeks gestation of pregnancy
CPT/HCPCS: 85025; 86850; 86900; 86901; 99213

== ENCOUNTER 2021-04-26 00:13 | Emergency (ER) | payer BC ==
[2021-04-26 00:20] VITALS: TEMP 98.8
[2021-04-26 00:47] LABS: Basophils % (A) 0 %; Eosinophils # (A) 0.4 k/uL (0-0.7); Eosinophils % (A) 5 %; HCT 36.6 % (34.0-46.0); Hypochromasia Slight; Lymphocytes # (A) 2.5 k/uL (1.0-4.8); Lymphocytes % (A) 30 %; MCH 26.5 pg (25.0-35.0); MCHC 32.3 g/dL (31.0-37.0); Mean Platelet Volume 6.8; Monocytes # (A) 0.3 k/uL (0-1.0); Monocytes % (A) 4 %; Neutrophils % (A) 59 %; Platelet Count 328 k/uL (150-450); RBC 4.45 m/uL (3.80-5.40); WBC 8.4 k/uL (3.8-10.6)
[2021-04-26 00:49] LABS: ALT 28 U/L (4-34); AST 30 U/L (14-36); African American GFR (CKD) >90 (>60 ml/min/1.73 sqM); Albumin 4.1 g/dL (3.5-5.0); Alkaline Phosphatase 129 U/L (38-126); Amylase 51 U/L (30-110); Anion Gap 10 mmol/L; Blood Urea Nitrogen 11 mg/dL (7-17); Calcium 9.3 mg/dL (8.4-10.2); Carbon Dioxide 24 mmol/L (22-30); Chloride 106 mmol/L (98-107); Glucose 122 mg/dL (74-99); Lipase 140 U/L (23-300); Non-African American GFR(CKD) >90 (>60 ml/min/1.73 sqM); Potassium 4.1 mmol/L (3.5-5.1); Sodium 140 mmol/L (137-145); Total Bilirubin 0.3 mg/dL (0.2-1.3); Total Protein 7.6 g/dL (6.3-8.2)
[2021-04-26 01:03] LABS: Appearance,Urine Clear (Clear); Bilirubin,Urine Negative (Negative); Blood,Urine Negative (Negative); Color,Urine Yellow; Glucose,Urine (UA) Negative (Negative); Ketones,Urine Negative (Negative); Leukocyte Esterase,Urine Negative (Negative); Nitrite,Urine Negative (Negative); PH, Urine 5.5 (5.0-8.0); Protein,Urine Trace (Negative); Specific Gravity,Urine 1.021 (1.001-1.035); Urobilinogen,Urine <2.0 mg/dL (<2.0)
[2021-04-26 01:12] LABS: HGB 11.8 gm/dL (11.4-16.0)
[2021-04-26 01:13] LABS: MCV 82.2 fL (80.0-100.0)
--- NOTE | 2021-04-26 02:53 | XR ---
EXAMINATION TYPE: XR KUB DATE OF EXAM: 04/26/2021 COMPARISON: 05/04/2017 HISTORY: Back pain TECHNIQUE: 2 views upright FINDINGS: There is no evidence of intestinal obstruction or pneumoperitoneum. Fecal pattern is normal . There are no pathologic consolidations over the kidneys. There is no evidence of a mass. IMPRESSION: Nonacute abdomen. No adverse change.
[2021-04-26] MEDS ORDERED: MORPHINE SULFATE 4 MG/ML SYRINGE IVP STA (04:11)
[2021-04-26] MEDS ORDERED: MAG HYDROX/AL HYDROX/SIMETH 30 ML, HYOSCYAMINE ELIXIR 10 ML, LIDOCAINE VISCOUS 2% 10 ML PO STA ×3 (04:11)
--- NOTE | 2021-04-26 04:14 | ED ---
General Adult HPI - General Chief complaint: Abdominal Pain Stated complaint: Abdominal Pain, fever Time Seen by Provider: 04/26/21 03:53 Source: patient Mode of arrival: ambulatory Limitations: no limitations - History of Present Illness Initial comments: Dictation was produced using [employer] dictation software. please excuse any grammatical, word or spelling errors. Chief Complaint: 25-year-old female presents emergency department for severe epigastric abdominal pain History of Present Illness: 25-year-old female presents emergency department for severe epigastric abdominal pain. Patient arrives with her . She states that her symptoms began since 11 PM last night. Patient states the pain is so severe. She's had multiple episodes of nonbilious nonbloody emesis. She states she is on her menstrual cycle. She is not sure if she has a old tampon in her vagina. Patient reports that the pain radiates to her back. It has any coughing. No shortness of breath. States that the pain is severe. The ROS documented in this emergency department record has been reviewed and confirmed by me. Those systems with pertinent positive or negative responses have been documented in the HPI. All other systems are other negative and/or noncontributory. PHYSICAL EXAM: General Impression: Alert and oriented x3, acute distress secondary pain HEENT: Normocephalic atraumatic, extra-ocular movements intact, pupils equal and reactive to light bilaterally, mucous membranes moist. Cardiovascular: Heart regular rate and rhythm Chest: Able to complete full sentences, no retractions, no tachypnea Abdomen: abdomen soft, tenderness to the epigastric area, non-distended, no organomegaly, no suprapubic tenderness Musculoskeletal: Pulses present and equal in all extremities, no peripheral edema Motor: no focal deficits noted Neurological: CN II-XII grossly intact, no focal motor or sensory deficits noted Skin: Intact with no visualized rashes Psych: Normal affect and mood Pelvic exam: No foreign bodies, some blood in the vaginal fornix without any bleeding, cervical os is closed, no adnexal or cervical motion tenderness ED course: 25-year-old female presents emergency department for severe abdominal pain. Her pain is epigastric. She denies any history of surgery. Signs upon arrival are within acceptable limits. Advanced triage labs were ordered. Patient had a normal CBC, metabolic panel is unremarkable. Urinalysis is negative. Patient has a negative urine hCG. Triage nurse ordered KUB x-ray shows no acute processes. I was told by triage nurse and triage staff that patient has been in the waiting room well-appearing for several hours until she was brought back to the emergency department. They felt that it was strange that patient acted like she was in significant distress when SHE was in the waiting room with no acute distress. Upon my evaluation at bedside. Computed tomography scan abdomen pelvis shows no acute processes. Patient observed in emergency department for approximately 5 hours and 30 minutes she's reevaluated bedside at 545 and found to be stable medical condition. Patient will be discharged. - Related Data Home Medications Medication Instructions Recorded Confirmed Loratadine [Claritin] 10 mg PO DAILY 01/14/21 02/21/21 Cholecalciferol [Vitamin D3 (25 2 tab PO DAILY 02/16/21 02/21/21 Mcg = 1000 Iu)] Pnv No.95/Ferrous Fum/Folic AC 1 tab PO DAILY 02/16/21 02/21/21 [ Multivitamin Tablet] Pyridoxine [Vitamin B-6] 1 tab PO DAILY 02/16/21 02/21/21 Allergies Allergy/AdvReac Type Severity Reaction Status Date / Time No Known Allergies Allergy Verified 04/26/21 00:17 Review of Systems ROS Statement: Those systems with pertinent positive or pertinent negative responses have been documented in the HPI. ROS Other: All systems not noted in ROS Statement are negative. Past Medical History Past Medical History: No Reported History Additional Past Medical History / Comment(s): Hidradenitis suppurativa History of Any Multi-Drug Resistant Organisms: None Reported Past Surgical History: Section Past Psychological History: No Psychological Hx Reported Smoking Status: Current every day smoker Past Alcohol Use History: None Reported Past Drug Use History: Marijuana General Exam Limitations: no limitations Course Vital Signs 04/26/21 00:17 Temperature 98.8 F Pulse Rate 99 Respiratory 20 Rate Blood Pressure 152/102 O2 Sat by Pulse 99 Oximetry Medical Decision Making - Lab Data Result diagrams: 04/26/21 00:24 04/26/21 00:24 Lab Results 04/26/21 04/26/21 04/26/21 Range/Units 00:24 00:24 00:34 WBC 8.4 (3.8-10.6) k/uL RBC 4.45 (3.80-5.40) m/uL Hgb 11.8 D (11.4-16.0) gm/dL Hct 36.6 (34.0-46.0) % MCV 82.2 D (80.0-100.0) fL MCH 26.5 (25.0-35.0) pg MCHC 32.3 (31.0-37.0) g/dL RDW 15.0 (11.5-15.5) % Plt Count 328 (150-450) k/uL MPV 6.8 Neutrophils % 59 % Lymphocytes % 30 % Monocytes % 4 % Eosinophils % 5 % Basophils % 0 % Neutrophils # 5.0 (1.3-7.7) k/uL Lymphocytes # 2.5 (1.0-4.8) k/uL Monocytes # 0.3 (0-1.0) k/uL Eosinophils # 0.4 (0-0.7) k/uL Basophils # 0.0 (0-0.2) k/uL Hypochromasia Slight Sodium 140 (137-145) mmol/L Potassium 4.1 (3.5-5.1) mmol/L Chloride 106 (98-107) mmol/L Carbon Dioxide 24 (22-30) mmol/L Anion Gap 10 mmol/L BUN 11 (7-17) mg/dL Creatinine 0.77 (0.52-1.04) mg/dL Est GFR (CKD-EPI)AfAm >90 (>60 ml/min/1.73 sqM) Est GFR (CKD-EPI)NonAf >90 (>60 ml/min/1.73 sqM) Glucose 122 H (74-99) mg/dL Calcium 9.3 (8.4-10.2) mg/dL Total Bilirubin 0.3 (0.2-1.3) mg/dL AST 30 (14-36) U/L ALT 28 (4-34) U/L Alkaline Phosphatase 129 H (38-126) U/L Total Protein 7.6 (6.3-8.2) g/dL Albumin 4.1 (3.5-5.0) g/dL Amylase 51 (30-110) U/L Lipase 140 (23-300) U/L Urine Color Yellow Urine Appearance Clear (Clear) Urine pH 5.5 (5.0-8.0) Ur Specific Wood 1.021 (1.001-1.035) Urine Protein Trace H (Negative) Urine Glucose (UA) Negative (Negative) Urine Ketones Negative (Negative) Urine Blood Negative (Negative) Urine Nitrite Negative (Negative) Urine Bilirubin Negative (Negative) Urine Urobilinogen <2.0 (<2.0) mg/dL Ur Leukocyte Esterase Negative (Negative) Urine HCG, Qual (Not Detectd) 04/26/21 Range/Units 00:34 WBC (3.8-10.6) k/uL RBC (3.80-5.40) m/uL Hgb (11.4-16.0) gm/dL Hct (34.0-46.0) % MCV (80.0-100.0) fL MCH (25.0-35.0) pg MCHC (31.0-37.0) g/dL RDW (11.5-15.5) % Plt Count (150-450) k/uL MPV Neutrophils % % Lymphocytes % % Monocytes % % Eosinophils % % Basophils % % Neutrophils # (1.3-7.7) k/uL Lymphocytes # (1.0-4.8) k/uL Monocytes # (0-1.0) k/uL Eosinophils # (0-0.7) k/uL Basophils # (0-0.2) k/uL Hypochromasia Sodium (137-145) mmol/L Potassium (3.5-5.1) mmol/L Chloride (98-107) mmol/L Carbon Dioxide (22-30) mmol/L Anion Gap mmol/L BUN (7-17) mg/dL Creatinine (0.52-1.04) mg/dL Est GFR (CKD-EPI)AfAm (>60 ml/min/1.73 sqM) Est GFR (CKD-EPI)NonAf (>60 ml/min/1.73 sqM) Glucose (74-99) mg/dL Calcium (8.4-10.2) mg/dL Total Bilirubin (0.2-1.3) mg/dL AST (14-36) U/L ALT (4-34) U/L Alkaline Phosphatase (38-126) U/L Total Protein (6.3-8.2) g/dL Albumin (3.5-5.0) g/dL Amylase (30-110) U/L Lipase (23-300) U/L Urine Color Urine Appearance (Clear) Urine pH (5.0-8.0) Ur Specific Wood (1.001-1.035) Urine Protein (Negative) Urine Glucose (UA) (Negative) Urine Ketones (Negative) Urine Blood (Negative) Urine Nitrite (Negative) Urine Bilirubin (Negative) Urine Urobilinogen (<2.0) mg/dL Ur Leukocyte Esterase (Negative) Urine HCG, Qual Not Detected (Not Detectd) Disposition Clinical Impression: Abdominal pain Disposition: HOME SELF-CARE Condition: Good Instructions (If sedation given, give patient instructions): Abdominal Pain (ED) Is patient prescribed a controlled substance at d/c from ED?: No Referrals: Cesario Gooden DO [Primary Care Provider] - 1-2 days
--- NOTE | 2021-04-26 05:28 | CT ---
EXAMINATION TYPE: CT abdomen pelvis w con DATE OF EXAM: 04/26/2021 COMPARISON: 05/04/2017 HISTORY: epigastric pain CT DLP: 1448.8 mGycm Automated exposure control for dose reduction was used. CONTRAST: Performed with IV Contrast, patient injected with 100ml mL of Isovue 300. Images obtained from the diaphragm to the floor of the pelvis with IV contrast. The lung bases are clear. There is no pleural effusion. Heart size is normal. There is no pericardial effusion. Liver spleen stomach pancreas gallbladder appear intact. The bowel is not dilated. There is no adrenal mass. Kidneys show satisfactory contrast opacification. There is no hydronephrosi s. Ureters are not dilated. There is no retroperitoneal adenopathy. The bladder distends smoothly. There is no inguinal hernia. T here is no free fluid in the pelvis. The uterus is anteverted. There is no evidence of a pelvic mass. Appendix is lateral and appears normal. There is no mesenteric edema. There is no ascites or free air. There is no sign of a bowel obstructio n. The lumbar vertebrae have normal alignment. There is no compression fracture. Bony pelvis is intact. The hip joints are intact. IMPRESSION: Negative CT scan abdomen and pelvis. Normal appendix. No adverse change compared to old exam.
[2021-04-26 06:00] VITALS: BP 111/76; PULSE 81; RESP 18
== END 2021-04-26 06:00 | disposition home or self-care (01) ==
LOC: EC 00:13
DX: R10.13 Epigastric pain (principal); F17.200 Nicotine dependence, unspecified, uncomplicated; F12.90 Cannabis use, unspecified, uncomplicated
CPT/HCPCS: 36415; 80053; 82150; 83690; 85025; 81003; 81025; 74018; 74177; 99284; 96374; J2270; Q9967

== ENCOUNTER 2021-06-04 14:16 | Emergency (ER) | payer BC ==
[2021-06-04 14:27] VITALS: TEMP 97.6
[2021-06-04] MEDS ORDERED: SODIUM CHLORIDE 0.9% 1,000 ML IV STA (14:39)
[2021-06-04] MEDS ORDERED: PANTOPRAZOLE 40 MG/10 ML VIAL IVP STA (14:39)
[2021-06-04 15:12] LABS: Basophils % (A) 0 %; Eosinophils # (A) 0.2 k/uL (0-0.7); Eosinophils % (A) 3 %; HCT 34.8 % (34.0-46.0); HGB 11.4 gm/dL (11.4-16.0); Hypochromasia Slight; Lymphocytes # (A) 1.7 k/uL (1.0-4.8); Lymphocytes % (A) 23 %; MCH 25.4 pg (25.0-35.0); MCHC 32.9 g/dL (31.0-37.0); MCV 77.3 fL (80.0-100.0); Mean Platelet Volume 6.8; Microcytosis Slight; Monocytes # (A) 0.4 k/uL (0-1.0); Monocytes % (A) 5 %; Neutrophils # (A) 5.2 k/uL (1.3-7.7); Neutrophils % (A) 68 %; Platelet Count 321 k/uL (150-450); RBC 4.51 m/uL (3.80-5.40); RDW 15.3 % (11.5-15.5); WBC 7.6 k/uL (3.8-10.6)
[2021-06-04 15:22] LABS: ALT 94 U/L (4-34); AST 76 U/L (14-36); African American GFR (CKD) >90 (>60 ml/min/1.73 sqM); Albumin 4.2 g/dL (3.5-5.0); Alkaline Phosphatase 137 U/L (38-126); Amylase 56 U/L (30-110); Anion Gap 8 mmol/L; Blood Urea Nitrogen 10 mg/dL (7-17); Calcium 9.1 mg/dL (8.4-10.2); Carbon Dioxide 26 mmol/L (22-30); Chloride 105 mmol/L (98-107); Glucose 120 mg/dL (74-99); Lipase 78 U/L (23-300); Non-African American GFR(CKD) >90 (>60 ml/min/1.73 sqM); Potassium 3.6 mmol/L (3.5-5.1); Sodium 139 mmol/L (137-145); Total Bilirubin 0.6 mg/dL (0.2-1.3); Total Protein 7.7 g/dL (6.3-8.2)
--- NOTE | 2021-06-04 15:27 | ED ---
General Adult HPI - General Chief complaint: Abdominal Pain Stated complaint: Upper Abdominal Pain, Vomiting Time Seen by Provider: 06/04/21 14:25 Source: patient, RN notes reviewed, old records reviewed Mode of arrival: ambulatory Limitations: no limitations - History of Present Illness Initial comments: This is a 26-year-old female presents emergency department stating that she started vomiting earlier today and has been unable to stop. Patient also complains of left upper quadrant abdominal pain. Patient states she's had this on and off since April and she supposed to eventually get scoped if it does continue. Patient states she has no fever chills per patient denies any lower abdominal pain patient denies any back pain patient denies any chest pain difficult breathing shortness of breath. Patient denies any blood in the emesis. Patient denies any diarrhea. - Related Data Home Medications Medication Instructions Recorded Confirmed Cetirizine HCl 10 mg PO DAILY 06/04/21 06/04/21 Etonogestrel [Nexplanon] 1 implant SQ [id number] 06/04/21 06/04/21 Fluticasone Nasal Palmer [Flonase 2 spray EA NOSTRIL HS 06/04/21 06/04/21 Nasal Palmer] Norethindrone-E.estradiol-Iron 1 tab PO DAILY 06/04/21 06/04/21 [Aurovela Fe 1.5 mg-30 Mcg Tab] Pantoprazole [Protonix] 40 mg PO DAILY 06/04/21 06/04/21 Allergies Allergy/AdvReac Type Severity Reaction Status Date / Time shellfish derived [Shellfish] Allergy Unknown Verified 06/04/21 15:56 Review of Systems ROS Statement: Those systems with pertinent positive or pertinent negative responses have been documented in the HPI. ROS Other: All systems not noted in ROS Statement are negative. Past Medical History Past Medical History: No Reported History Additional Past Medical History / Comment(s): Hidradenitis suppurativa History of Any Multi-Drug Resistant Organisms: None Reported Past Surgical History: Section Past Psychological History: No Psychological Hx Reported Smoking Status: Current every day smoker Past Alcohol Use History: None Reported Past Drug Use History: Marijuana General Exam - General Exam Comments Initial Comments: GENERAL: Patient is well-developed and well-nourished. Patient is nontoxic and well- hydrated and is in mild distress. ENT: Neck is soft and supple. No significant lymphadenopathy is noted. Oropharynx is clear. Moist mucous membranes. Neck has full range of motion without eliciting any pain. EYES: The sclera were anicteric and conjunctiva were pink and moist. Extraocular movements were intact and pupils were equal round and reactive to light. Eyelids were unremarkable. PULMONARY: Unlabored respirations. Good breath sounds bilaterally. No audible rales rhonchi or wheezing was noted. CARDIOVASCULAR: There is a regular rate and rhythm without any murmurs gallops or rubs. ABDOMEN: Slight abdominal pain in the left upper quadrant. SKIN: Skin is clear with no lesions or rashes and otherwise unremarkable. NEUROLOGIC: Patient is alert and oriented x3. Cranial nerves II through XII are grossly intact. Motor and sensory are also intact. Normal speech, volume and content. Symmetrical smile. MUSCULOSKELETAL: Normal extremities with adequate strength and full range of motion. No lower extremity swelling or edema. No calf tenderness. LYMPHATICS: No significant lymphadenopathy is noted PSYCHIATRIC: Normal psychiatric evaluation. Limitations: no limitations Course Vital Signs 06/04/21 14:24 Temperature 97.6 F Pulse Rate 101 H Respiratory 18 Rate Blood Pressure 142/94 O2 Sat by Pulse 99 Oximetry Medical Decision Making - Medical Decision Making KUB shows no acute abnormality. Patient received droperidol and fluids and felt considerably better and wanted to be discharged home. - Lab Data Result diagrams: 06/04/21 15:08 06/04/21 15:08 Lab Results 06/04/21 06/04/21 Range/Units 15:08 15:08 WBC 7.6 (3.8-10.6) k/uL RBC 4.51 (3.80-5.40) m/uL Hgb 11.4 (11.4-16.0) gm/dL Hct 34.8 (34.0-46.0) % MCV 77.3 L (80.0-100.0) fL MCH 25.4 (25.0-35.0) pg MCHC 32.9 (31.0-37.0) g/dL RDW 15.3 (11.5-15.5) % Plt Count 321 (150-450) k/uL MPV 6.8 Neutrophils % 68 % Lymphocytes % 23 % Monocytes % 5 % Eosinophils % 3 % Basophils % 0 % Neutrophils # 5.2 (1.3-7.7) k/uL Lymphocytes # 1.7 (1.0-4.8) k/uL Monocytes # 0.4 (0-1.0) k/uL Eosinophils # 0.2 (0-0.7) k/uL Basophils # 0.0 (0-0.2) k/uL Hypochromasia Slight Microcytosis Slight Sodium 139 (137-145) mmol/L Potassium 3.6 (3.5-5.1) mmol/L Chloride 105 (98-107) mmol/L Carbon Dioxide 26 (22-30) mmol/L Anion Gap 8 mmol/L BUN 10 (7-17) mg/dL Creatinine 0.80 (0.52-1.04) mg/dL Est GFR (CKD-EPI)AfAm >90 (>60 ml/min/1.73 sqM) Est GFR (CKD-EPI)NonAf >90 (>60 ml/min/1.73 sqM) Glucose 120 H (74-99) mg/dL Calcium 9.1 (8.4-10.2) mg/dL Total Bilirubin 0.6 (0.2-1.3) mg/dL AST 76 H (14-36) U/L ALT 94 H (4-34) U/L Alkaline Phosphatase 137 H (38-126) U/L Total Protein 7.7 (6.3-8.2) g/dL Albumin 4.2 (3.5-5.0) g/dL Amylase 56 (30-110) U/L Lipase 78 (23-300) U/L Disposition Clinical Impression: Abdominal pain, Acute vomiting Disposition: HOME SELF-CARE Condition: Good Instructions (If sedation given, give patient instructions): Abdominal Pain (ED), Acute Nausea and Vomiting (ED) Is patient prescribed a controlled substance at d/c from ED?: No Referrals: Devora Farrar MD [STAFF PHYSICIAN] - 1-2 days Time of Disposition: 17:09
--- NOTE | 2021-06-04 15:45 | XR ---
EXAMINATION TYPE: XR KUB DATE OF EXAM: 06/04/2021 COMPARISON: 04/26/2021 INDICATION: Abdomen pain nausea vomiting TECHNIQUE: Single view abdomen upright view FINDINGS: There is a possibility of bowel gas present. No dilated air-filled loops of bowel are evident. No kassandra picious air-fluid levels are evident. No significant fecal retention is evident. Psoas margins are normal. No organomegaly is present. No suspicious calcifications evident. The osseous structures appear normal. IMPRESSION: 1. Unremarkable Abdomen
[2021-06-04] MEDS ORDERED: ONDANSETRON 4 MG ODT STARTER PACK 2 TAB BTL PO STA (17:11)
[2021-06-04 17:19] VITALS: BP 125/74; PULSE 98; RESP 16
== END 2021-06-04 17:19 | disposition home or self-care (01) ==
LOC: EC 14:16
DX: R10.12 Left upper quadrant pain (principal); R11.10 Vomiting, unspecified; F17.200 Nicotine dependence, unspecified, uncomplicated; F12.90 Cannabis use, unspecified, uncomplicated
CPT/HCPCS: 36415; 80053; 82150; 83690; 85025; 74018; 99284; 96374; 96375; 96361; S0119; C9113; J1790

== ENCOUNTER 2024-07-11 05:59 | Day surgery (SDC) | payer BC ==
[2024-07-06 16:01] VITALS: BMI 33.8
[~2024-07-11 05:59] MED LIST changes: -KETOROLAC 15 MG/ML 1 ML VIAL ONE; +LIDOCAINE 1% (10MG/ML) FOR IV START INTRADERMA PRN; -MORPHINE SULFATE (PF) 0.3 MG/0.3 ML SYR ONE; -ONDANSETRON 4 MG/2 ML VIAL ONE; -ROPIVACAINE 5MG/ML 20ML VIAL ONE; -SODIUM CHLORIDE 0.9% 100 ML BAG ONE; -fentaNYL (PF) 50 MCG/ML 5 ML AMP ONE
[2024-07-11] MEDS: IV FLUID CONTINUATION 1,000 ML IV ONE ×2 (06:23)
[2024-07-11 06:28] VITALS: TEMP 97.3
[2024-07-11] MEDS: LACTATED RINGERS 1,000 ML IV SCH (06:32)
[2024-07-11] MEDS: ONDANSETRON 4 MG/2 ML VIAL IVP STA (07:00)
[2024-07-11] MEDS ORDERED: LIDOCAINE 2% (PF) 20 MG/ML 5 ML VIAL ONE (07:00)
[2024-07-11] MEDS ORDERED: PROPOFOL 10 MG/ML 20 ML VIAL IV ONE (07:00)
--- NOTE | 2024-07-11 07:19 | P.PCN ---
Date of Procedure: 07/11/24 Procedure(s) Performed: Brief history: Patient is a pleasant 29-year-old white female scheduled for an elective upper endoscopy as well as colonoscopy as a part of evaluation of intermittent episodes of nausea vomiting diarrhea and rectal bleeding for the last several years duration Procedure performed: Esophagogastroduodenoscopy with biopsy Colonoscopy with biopsy Preoperative diagnosis: Intermittent episodes of nausea vomiting Diarrhea and rectal bleeding Anesthesia: [facility] [place] Procedure: After informed consent was obtained from the patient was brought into the endoscopy unit and IV sedation was administered by anesthesia under continuous monitoring. Initially upper endoscopy was done. The Olympus GF 160 video endoscope was inserted inserted into the mouth and esophagus intubated without any difficulty and was gradually advanced into the stomach and duodenum and carefully examined. The bulb and second part of the duodenum appeared normal. Biopsies were done from the duodenum to rule out celiac disease. The scope was then withdrawn into the stomach adequately insufflated with air and upon careful examination the antrum and mild gastritis and biopsies were done from this area. Mucosa body, cardia and fundus appeared normal. The scope was then withdrawn into the esophagus. The GE junction was located at 40 cm to the incisors. It appeared regular with no erythema erosions or ulcerations. Rest of the esophagus appeared normal. Patient tolerated the procedure well. At this time the patient continued to remain sedation. Initial digital rectal examination was normal. Olympus CF 160 video colonoscope was then inserted into the rectum and gradually advanced to the cecum without any difficulty. Careful examination was performed as the scope was gradually being withdrawn. The prep was excellent. The cecum, ascending colon, transverse colon, descending colon, sigmoid colon and rectum appeared normal. Random biopsies were done from the ascending and descending colon rule out microscopic/collagenous colitis. Retroflexion was performed in the rectum and no lesions were noted. Patient tolerated the procedure well. Impression: 1. Upper endoscopy revealed mild gastritis but no evidence of esophagitis or peptic ulcer disease 2. Colonoscopy was within normal limits with no ulcer colitis or colorectal neoplasia Recommendations: Findings of this examination were discussed with the patient as well as her family. She was advised to follow with the biopsy results. Follow-up in the office in 2 weeks.
[2024-07-11 07:50] VITALS: BP 126/81; PULSE 60; RESP 15
== END 2024-07-11 08:27 | disposition home or self-care (01) ==
LOC: ORWHC2ENDO 05:59
PROVIDERS: ATTEND Internal Medicine Gastroenterology
DX: K62.5 Hemorrhage of anus and rectum (principal); K29.50 Unspecified chronic gastritis without bleeding; F17.290 Nicotine dependence, other tobacco product, uncomplicated; Z79.899 Other long term (current) drug therapy; Z91.013 Allergy to seafood; Z91.048 Other nonmedicinal substance allergy status
CPT/HCPCS: 45380; 43239; 81025; J2405; J2704; J2003; 88305

== ENCOUNTER 2024-08-20 17:39 | Emergency (ER) | payer BC ==
--- NOTE | 2024-08-20 18:15 | ED ---
General Adult HPI - General Chief complaint: Abdominal Pain Stated complaint: Abd Pain/NV/Back pain Time Seen by Provider: 08/20/24 17:49 Source: patient, RN notes reviewed Mode of arrival: ambulatory Limitations: no limitations - History of Present Illness Initial comments: 29-year-old female presents to the emergency department for evaluation of abdom inal pain. Patient states that she has a history of chronic abdominal pain which is usually managed with her dicyclomine. She states that she took her medication today and has not had any relief. She does report that the pain is similar in character to the pain that she typically experiences. She does note that today's pain is more severe. She reports it is a stabbing pain in the epigastric and left upper abdomen. She reports that it radiates to her back. She denies any fever, chills. Endorses nausea and vomiting. Denies any changes in her bowel movements. She had a colonoscopy with Dr. Farrar about a month and a half ago. - Related Data Home Medications Medication Instructions Recorded Confirmed Pantoprazole [Protonix] 40 mg PO DAILY 06/04/21 08/20/24 Dicyclomine [Bentyl] 10 mg PO TID PRN 07/06/24 08/20/24 norethindrone-e.estradioL-iron 1 tab PO DAILY 07/06/24 08/20/24 [Junel Fe 1.5 mg-30 Mcg Tablet] Allergies Allergy/AdvReac Type Severity Reaction Status Date / Time shellfish derived [Shellfish] Allergy Severe Anaphylaxis Verified 08/20/24 19:48 medical tape/adhesive AdvReac skin Uncoded 08/20/24 17:46 irritation Review of Systems ROS Statement: Those systems with pertinent positive or pertinent negative responses have been documented in the HPI. ROS Other: All systems not noted in ROS Statement are negative. Past Medical History Past Medical History: No Reported History Additional Past Medical History / Comment(s): Ongoing GI symptoms-vomitin g/diarrhea. Hidradenitis suppurativa in groin area-no current flare ups. Endometriosis History of Any Multi-Drug Resistant Organisms: None Reported Past Surgical History: Section Additional Past Surgical History / Comment(s): abd laparoscopy in Nov 2017. Nexplanon insertion/removal-removed 03/2024. Past Anesthesia/Blood Transfusion Reactions: Motion Sickness Additional Past Anesthesia/Blood Transfusion Reaction / Comment(s): No hx of blood transfusion Past Psychological History: No Psychological Hx Reported Smoking Status: Vaper General Exam Limitations: no limitations General appearance: alert, in no apparent distress Head exam: Present: atraumatic, normocephalic, normal inspection Eye exam: Present: normal appearance, PERRL, EOMI. Absent: scleral icterus, conjunctival injection, periorbital swelling ENT exam: Present: normal exam, mucous membranes moist Respiratory exam: Present: normal lung sounds bilaterally. Absent: respiratory distress, wheezes, rales, rhonchi, stridor Cardiovascular Exam: Present: regular rate, normal rhythm, normal heart sounds. Absent: systolic murmur, diastolic murmur, rubs, gallop, clicks GI/Abdominal exam: Present: soft, tenderness, normal bowel sounds. Absent: distended, guarding, rebound, rigid Extremities exam: Present: normal inspection, full ROM, normal capillary refill. Absent: tenderness, pedal edema, joint swelling, calf tenderness Back exam: Present: normal inspection Neurological exam: Present: alert, oriented X3 Psychiatric exam: Present: normal affect, normal mood Skin exam: Present: warm, dry, intact, normal color. Absent: rash Course Vital Signs 08/20/24 08/20/24 17:43 20:56 Temperature 97.9 F 98 F Pulse Rate 87 98 Respiratory 18 16 Rate Blood Pressure 125/87 116/68 O2 Sat by Pulse 99 98 Oximetry Medical Decision Making - Medical Decision Making Was pt. sent in by a medical professional or institution (, PA, [employer], urgent care, hospital, or fpc...) When possible be specific @ -No Did you speak to anyone other than the patient for history (EMS, parent, family, police, friend...)? What history was obtained from this source @ -No Did you review nursing and triage notes (agree or disagree)? Why? @ -I reviewed and agree with nursing and triage notes Were old charts reviewed (outside hosp., previous admission, EMS record, old EKG, old radiological studies, urgent care reports/EKG's, fpc records)? Report findings @ -No old charts were reviewed Differential Diagnosis (chest pain, altered mental status, abdominal pain women, abdominal pain men, vaginal bleeding, weakness, fever, dyspnea, syncope, headache, dizziness, GI bleed, back pain, seizure, CVA, palpatations, mental health, musculoskeletal)? @ -Differential Abdominal Pain Women: Appendicitis, Cholecystitis, diverticulosis, ischemic bowel, pancreatitis, hepatitis, UTI, gastroenteritis, AAA, incarcerated hernia, bowel obstruction, constipation, inflammatory bowel, hepatitis, peptic ulcer disease, splenic infarction, perforated viscus, vulvitis, ovarian torsion, PID, kidney stone, placenta abruption, this is not meant to be an all-inclusive list EKG interpreted by me (3pts min.). @ -EKG at 1835 shows sinus rhythm rate 80, IL 143, QRS 80, QTQTc 982007 X-rays interpreted by me (1pt min.). @ -None done CT interpreted by me (1pt min.). @ -None done U/S interpreted by me (1pt. min.). @ -Gallbladder ultrasound reveals no acute process What testing was considered but not performed or refused? (CT, X-rays, U/S, labs)? Why? @ -None What meds were considered but not given or refused? Why? @ -None Did you discuss the management of the patient with other professionals (professionals i.e. , PA, [employer], lab, RT, psych nurse, social security specialist, datacap developer, teacher, juvenile justice officer, case mgr)? Give summary @ -No Was smoking cessation discussed for >3mins.? @ -No Was critical care preformed (if so, how long)? @ -No Were there social determinants of health that impacted care today? How? (Homelessness, low income, unemployed, alcoholism, drug addiction, transportation, low edu. Level, literacy, decrease access to med. care, long-term, rehab)? @ -No Was there de-escalation of care discussed even if they declined (Discuss DNR or withdrawal of care, Hospice)? DNR status @ -No What co-morbidities impacted this encounter? (DM, HTN, Smoking, COPD, CAD, Can cer, CVA, ARF, Chemo, Hep., AIDS, mental health diagnosis, sleep apnea, morbid obesity)? @ -None Was patient admitted / discharged? Hospital course, mention meds given and route, prescriptions, significant lab abnormalities, going to OR and other pertinent info. @ -Discharge. Patient presented emergency department for evaluation of abdominal pain. Patient reports history of similar pain in the past.Laboratory studies revealed no significant acute symptoms, hemoglobin 13.3; she does have elevation in the AST and ALT. Advised her that she should have a recheck performed by her primary care provider in around a week. UA shows no evidence of infectious process. Negative urine hCG. Gallbladder ultrasound reveals no acute process. Patient is feeling better and would like to be discharged home. Patient understanding agreeable with plan. Patient stable at time of discharge. Case discussed with Dr. Stuart Undiagnosed new problem with uncertain prognosis? @ -No Drug Therapy requiring intensive monitoring for toxicity (Heparin, Nitro, Insulin, Cardizem)? @ -No Were any procedures done? @ -No Diagnosis/symptom? @ -Abdominal pain Acute, or Chronic, or Acute on Chronic? @ -Acute Uncomplicated (without systemic symptoms) or Complicated (systemic symptoms)? @ -Uncomplicated Side effects of treatment? @ -No Exacerbation, Progression, or Severe Exacerbation? @ -No Poses a threat to life or bodily function? How? (Chest pain, [place], [place], pneumonia, PE, COPD, DKA, ARF, appy, cholecystitis, CVA, Diverticulitis, Homicidal, Suicidal, threat to staff... and all critical care pts) @ -No - Lab Data Result diagrams: 08/20/24 19:00 08/20/24 19:00 Lab Results 08/20/24 08/20/24 08/20/24 Range/Units 19:00 19:00 19:00 WBC 7.65 (4.50-10.00) 10*3/uL RBC 4.70 (4.10-5.20) 10*6/uL Hgb 13.3 (12.0-15.0) g/dL Hct 40.2 (37.2-46.3) % MCV 85.5 (80.0-97.0) fL MCH 28.3 (27.0-32.0) pg MCHC 33.1 (32.0-37.0) g/dL Plt Count 259 (140-440) 10*3/uL MPV 9.5 (9.5-12.2) fL Immature Gran % (Auto) 0.4 % Neutrophils % 64.8 % Lymphocytes % 25.6 % Monocytes % 7.1 % Eosinophils % 1.6 % Basophils % 0.5 % Immature Gran # 0.03 (0.00-0.04) 10*3/uL Neutrophils # 4.96 (1.80-7.70) 10*3/uL Lymphocytes # 1.96 (0.90-5.00) 10*3/uL Monocytes # 0.54 (0.20-1.00) 10*3/uL Eosinophils # 0.12 (0.04-0.35) 10*3/uL Basophils # 0.04 (0.00-0.10) 10*3/uL Sodium (137-145) mmol/L Potassium (3.5-5.1) mmol/L Chloride (98-107) mmol/L Carbon Dioxide (22-30) mmol/L Anion Gap mmol/L BUN (7-17) mg/dL Creatinine (0.52-1.04) mg/dL Est GFR (CKD-EPI)AfAm (>60 ml/min/1.73 sqM) Est GFR (CKD-EPI)NonAf (>60 ml/min/1.73 sqM) Glucose (74-99) mg/dL Calcium (8.4-10.2) mg/dL Total Bilirubin (0.2-1.3) mg/dL AST (14-36) U/L ALT (4-34) U/L Alkaline Phosphatase (38-126) U/L Total Protein (6.3-8.2) g/dL Albumin (3.5-5.0) g/dL Amylase (30-110) U/L Lipase (23-300) U/L Urine Color Yellow Urine Appearance Clear (Clear) Urine pH 6.0 (5.0-8.0) Ur Specific Atlas 1.020 (1.001-1.035) Urine Protein Negative (Negative) Urine Glucose (UA) Negative (Negative) Urine Ketones Negative (Negative) Urine Blood Trace H (Negative) Urine Nitrite Negative (Negative) Urine Bilirubin 1+ H (Negative) Urine Urobilinogen 3.0 (<2.0) mg/dL Ur Leukocyte Esterase Small H (Negative) Urine WBC 1 (0-5) /hpf Ur Squamous Epith Cells 1 (0-4) /hpf Urine Mucus Few H (None) /hpf Urine HCG, Qual Not Detected (Not Detectd) 08/20/24 Range/Units 19:00 WBC (4.50-10.00) 10*3/uL RBC (4.10-5.20) 10*6/uL Hgb (12.0-15.0) g/dL Hct (37.2-46.3) % MCV (80.0-97.0) fL MCH (27.0-32.0) pg MCHC (32.0-37.0) g/dL Plt Count (140-440) 10*3/uL MPV (9.5-12.2) fL Immature Gran % (Auto) % Neutrophils % % Lymphocytes % % Monocytes % % Eosinophils % % Basophils % % Immature Gran # (0.00-0.04) 10*3/uL Neutrophils # (1.80-7.70) 10*3/uL Lymphocytes # (0.90-5.00) 10*3/uL Monocytes # (0.20-1.00) 10*3/uL Eosinophils # (0.04-0.35) 10*3/uL Basophils # (0.00-0.10) 10*3/uL Sodium 137 (137-145) mmol/L Potassium 4.0 (3.5-5.1) mmol/L Chloride 103 (98-107) mmol/L Carbon Dioxide 22 (22-30) mmol/L Anion Gap 12 mmol/L BUN 6 L (7-17) mg/dL Creatinine 0.70 (0.52-1.04) mg/dL Est GFR (CKD-EPI)AfAm >90 (>60 ml/min/1.73 sqM) Est GFR (CKD-EPI)NonAf >90 (>60 ml/min/1.73 sqM) Glucose 87 (74-99) mg/dL Calcium 9.7 (8.4-10.2) mg/dL Total Bilirubin 1.3 (0.2-1.3) mg/dL AST 174 H (14-36) U/L ALT 147 H (4-34) U/L Alkaline Phosphatase 126 (38-126) U/L Total Protein 8.1 (6.3-8.2) g/dL Albumin 4.6 (3.5-5.0) g/dL Amylase 46 (30-110) U/L Lipase 70 (23-300) U/L Urine Color Urine Appearance (Clear) Urine pH (5.0-8.0) Ur Specific Atlas (1.001-1.035) Urine Protein (Negative) Urine Glucose (UA) (Negative) Urine Ketones (Negative) Urine Blood (Negative) Urine Nitrite (Negative) Urine Bilirubin (Negative) Urine Urobilinogen (<2.0) mg/dL Ur Leukocyte Esterase (Negative) Urine WBC (0-5) /hpf Ur Squamous Epith Cells (0-4) /hpf Urine Mucus (None) /hpf Urine HCG, Qual (Not Detectd) Disposition Clinical Impression: Abdominal pain, Gallstones Disposition: HOME SELF-CARE Condition: Stable Instructions (If sedation given, give patient instructions): Abdominal Pain (ED) Additional Instructions: Please follow-up with your GI doctor. Return to the emergency department for new or worsening symptoms. Is patient prescribed a controlled substance at d/c from ED?: No Referrals: None,Stated [Primary Care Provider] - 1-2 days
[2024-08-20] MEDS: SODIUM CHLORIDE 0.9% 1,000 ML IV ONE (19:01)
[2024-08-20] MEDS: ONDANSETRON 4 MG/2 ML VIAL IVP STA (19:02)
[2024-08-20] MEDS: PANTOPRAZOLE 40 MG/10 ML VIAL IVP STA (19:02)
[2024-08-20] MEDS: KETOROLAC 15 MG/ML 1 ML VIAL IVP STA (19:03)
[2024-08-20 19:16] LABS: Basophils # (A) 0.04 10*3/uL (0.00-0.10); Basophils % (A) 0.5 %; Eosinophils # (A) 0.12 10*3/uL (0.04-0.35); Eosinophils % (A) 1.6 %; HCT 40.2 % (37.2-46.3); HGB 13.3 g/dL (12.0-15.0); Lymphocytes # (A) 1.96 10*3/uL (0.90-5.00); Lymphocytes % (A) 25.6 %; MCH 28.3 pg (27.0-32.0); MCHC 33.1 g/dL (32.0-37.0); MCV 85.5 fL (80.0-97.0); Mean Platelet Volume 9.5 fL (9.5-12.2); Monocytes # (A) 0.54 10*3/uL (0.20-1.00); Monocytes % (A) 7.1 %; Neutrophils # (A) 4.96 10*3/uL (1.80-7.70); Neutrophils % (A) 64.8 %; Platelet Count 259 10*3/uL (140-440); RDW 13.6 % (11.5-14.5); WBC 7.65 10*3/uL (4.50-10.00)
[2024-08-20 19:21] LABS: Appearance,Urine Clear (Clear); Bilirubin,Urine 1+ (Negative); Blood,Urine Trace (Negative); Color,Urine Yellow; Glucose,Urine (UA) Negative (Negative); Ketones,Urine Negative (Negative); Leukocyte Esterase,Urine Small (Negative); Mucus,Urine Few /hpf; Nitrite,Urine Negative (Negative); Protein,Urine Negative (Negative); Squamous Epithelial Cell,Urine 1 /hpf (0-4); WBC,Urine 1 /hpf (0-5)
[2024-08-20 19:31] LABS: ALT 147 U/L (4-34); AST 174 U/L (14-36); African American GFR (CKD) >90 (>60 ml/min/1.73 sqM); Albumin 4.6 g/dL (3.5-5.0); Alkaline Phosphatase 126 U/L (38-126); Amylase 46 U/L (30-110); Anion Gap 12 mmol/L; Blood Urea Nitrogen 6 mg/dL (7-17); Calcium 9.7 mg/dL (8.4-10.2); Carbon Dioxide 22 mmol/L (22-30); Chloride 103 mmol/L (98-107); Glucose 87 mg/dL (74-99); Lipase 70 U/L (23-300); Non-African American GFR(CKD) >90 (>60 ml/min/1.73 sqM); Sodium 137 mmol/L (137-145); Total Bilirubin 1.3 mg/dL (0.2-1.3); Total Protein 8.1 g/dL (6.3-8.2)
--- NOTE | 2024-08-20 20:28 | US ---
EXAMINATION TYPE: US gallbladder DATE OF EXAM: 08/20/2024 COMPARISON: None CLINICAL INDICATION: Female, 29 years old with history of pain; TECHNIQUE: Grayscale and color Doppler imaging of the right upper quadrant was performed. FINDINGS: EXAM MEASUREMENTS: Liver Length: 18.3 cm Gallbladder Wall: 0.1 cm CBD: 0.4 cm Right Kidney: 10.0 x 5.1 x 4.2 cm Pancreas: Head and tail obscured by overlying bowel gas Liver: Enlarged in size Gallbladder: Size= 10.6 cm. Echogenic foci with shadowing seen at GB fundus. Evidence for sonographic Carrillo's sign: neg CBD: wnl Right Kidney: No hydronephrosis or masses seen IMPRESSION: 1. Hepatomegaly. There may be some mild fatty infiltration of the liver. 2. Some minimal tiny gallstones may be present. No radiographic evidence of acute cholecystitis. [facility], , 08/20/2024 8:26 PM
[2024-08-20 20:57] VITALS: BP 116/68; PULSE 98; RESP 16; TEMP 98
== END 2024-08-20 20:57 | disposition home or self-care (01) ==
LOC: EC 17:39
DX: K80.20 Calculus of gallbladder without cholecystitis without obstruction (principal); F17.290 Nicotine dependence, other tobacco product, uncomplicated; Z91.013 Allergy to seafood; Z91.09 Other allergy status, other than to drugs and biological substances
CPT/HCPCS: 36415; 93005; 80053; 82150; 83690; 85025; 81001; 81025; 76705; 99284; 96374; 96375 ×2; 96361; J2405; J1885; J2470